=== PATIENT | female | born 1980 | race Asian ===

== ENCOUNTER → 2017-03-07 | Outpatient (CLI) | payer BC, OTHER ==
[~2017-03-07] MED LIST: None at this Time
== END ==
LOC: STAR 08:29
PROVIDERS: ATTEND Surgery
DX: Z02.9 Encounter for administrative examinations, unspecified (principal)

== ENCOUNTER 2017-03-16 11:00 | Day surgery (SDC) | payer BC ==
[~2017-03-16] VITALS: Ht 160 cm; Wt 84.8 kg
[2017-03-16] MEDS ORDERED: LACTATED RINGERS 1,000 ML IV SCH (11:22)
[2017-03-16 11:32] LABS: HCG UR LOT HCG7030192
[2017-03-16 11:41] LABS: HCG UR OBC PASS
[2017-03-16 11:47] VITALS: BP 149/102
[2017-03-16] MEDS ORDERED: BUPIVACAINE/PF 0.5% ONE (12:00)
[2017-03-16] MEDS ORDERED: EPINEPHRINE 1 MG/ML, 1ML ONE (12:00)
[2017-03-16] MEDS ORDERED: LIDOCAINE/PF 1%, 30ML ONE (12:09)
[2017-03-16] MEDS ORDERED: MIDAZOLAM 1 MG/ML, 2ML ONE (12:47)
[2017-03-16] MEDS ORDERED: FENTANYL PF 100 MCG/2ML ONE ×2 (12:47→14:50)
[2017-03-16] MEDS ORDERED: PROPOFOL 10 MG/ML, 20ML ONE (12:47)
[2017-03-16] MEDS ORDERED: KETAMINE 10 MG/ML, 20ML ONE (12:48)
[2017-03-16] MEDS ORDERED: OXYcodone 5 MG/5 ML ORAL.SOL UDC PO PRN (13:00)
[2017-03-16] MEDS ORDERED: MIDAZOLAM 1 MG/ML, 2ML IV PRN (13:00)
[2017-03-16] MEDS ORDERED: ONDANSETRON 2MG/ML, 2ML IVPush PRN (13:00)
[2017-03-16] MEDS ORDERED: MEPERIDINE/PF 25MG/0.5ML IVPush PRN (13:00)
[2017-03-16] MEDS ORDERED: hydrALAzine 20 MG/ML, 1ML IV PRN (13:00)
[2017-03-16] MEDS ORDERED: ALBUTEROL SULFATE 2.5 MG/3 ML NPPB PRN (13:00)
[2017-03-16] MEDS ORDERED: HYDROmorphone 1 MG/ML, 1ML IV PRN (13:00)
[2017-03-16] MEDS ORDERED: LABETALOL 5MG/ML, 20ML IV PRN (13:00)
[2017-03-16] MEDS ORDERED: ACETAMINOPHEN 325 MG TABLET PO PRN (13:00)
[2017-03-16] MEDS ORDERED: PROMETHAZINE 25 MG/ML, 1ML IV PRN (13:00)
[2017-03-16] MEDS ORDERED: ONDANSETRON 2MG/ML, 2ML ONE ×2 (13:29)
[2017-03-16] MEDS ORDERED: DEXAMETHASONE 4 MG/ML, 1ML ONE ×2 (13:29)
[2017-03-16] MEDS ORDERED: CEFAZOLIN 1,000 MG ONE ×2 (13:29)
[2017-03-16] MEDS ORDERED: LIDOCAINE GEL 2%, 5ML ONE (14:11)
[2017-03-16] MEDS ORDERED: PROMETHAZINE 25 MG/ML, 1ML ONE (14:50)
[2017-03-16] MEDS: FENTANYL PF 100 MCG/2ML IV PRN ×2 (14:58→15:10)
[2017-03-16] MEDS ORDERED: OXYcodone/APAP 5/325MG TABLET PO PRN (16:00)
[2017-03-16] MEDS ORDERED: OXYcodone/APAP 5/325MG TABLET ONE (16:03)
== END 2017-03-16 16:45 ==
LOC: OUT 11:00
PROVIDERS: ATTEND Surgery
DX: N63.12 Unspecified lump in the right breast, upper inner quadrant (principal)
CPT/HCPCS: 19120; 81025; 88307; J0171; J0690; J1100; J2250; J2405; J2550; J2704; J3010; J3490; J7120

== ENCOUNTER 2019-09-25 11:48 | Outpatient (CLI) | payer BC ==
[~2019-09-25] VITALS: Ht 160 cm; Wt 94.0 kg
[2019-09-25 11:53] VITALS: BP 124/79
[2019-09-25 12:16] LABS: BASOPHILS # (AUTO) 0.04 x10^3/uL (0-0.1); BASOPHILS % (AUTO) 0 % (0-1); EOSINOPHILS # (AUTO) 0.23 x10^3/uL (0-0.4); EOSINOPHILS % (AUTO) 2 % (1-7); LYMPHOCYTES # (AUTO) 1.83 x10^3/uL (1-3.4); LYMPHOCYTES % (AUTO) 14 % (22-44); MD NO; MEAN CORPUSCULAR HEMOGLOBIN 28.7 pg (27.0-34.8); MEAN CORPUSCULAR HGB CONC 33.6 g/dL (32.4-35.8); MEAN CORPUSCULAR VOLUME 85.3 fL (80-100); MONOCYTES # (AUTO) 0.87 x10^3/uL (0.2-0.8); MONOCYTES % (AUTO) 7 % (2-9); NEUTROPHILS # (AUTO) 10.12 x10^3/uL (1.8-6.8); NEUTROPHILS % (AUTO) 77 % (42-75); PLATELET COUNT 455 x10^3/uL (130-400); RED BLOOD COUNT 4.46 x10^6/uL (3.82-5.3); RED CELL DISTRIBUTION WIDTH 13.9 % (9.6-15.2)
[2019-09-25 12:27] LABS: CHLORIDE 105 mmol/L (98-107)
[2019-09-25 12:34] LABS: ALANINE AMINOTRANSFERASE 16 U/L (12-78); ALBUMIN 2.8 g/dL (3.4-5.0); ALKALINE PHOSPHATASE 90 U/L (45-117); ANION GAP 7 mmol/L (5-15); BILIRUBIN,TOTAL 0.5 mg/dL (0.2-1.0); CALCIUM 8.8 mg/dL (8.5-10.1); CREATININE 0.68 mg/dL (0.55-1.02); TOTAL PROTEIN 7.5 g/dL (6.4-8.2)
[2019-09-25 12:41] LABS: BILIRUBIN, DIRECT < 0.1 mg/dL (0.1-0.2)
[2019-09-25 12:42] LABS: MICROSCOPIC INDICATED
[2019-09-25] MEDS ORDERED: BETAMETHASONE 6 MG/ML, 5ML IM ONE ×2 (13:14→13:30)
[2019-09-25] MEDS ORDERED: PREN1TAB10 PO (13:18)
[2019-09-25] MEDS ORDERED: ASPI-515 PO (13:18)
== END 2019-09-25 13:28 | disposition home or self-care (01) ==
LOC: LDOP 11:48
PROVIDERS: ATTEND Obstetrics & Gynecology
DX: O13.3 Gestational [pregnancy-induced] hypertension without significant proteinuria, third trimester (principal); Z3A.34 34 weeks gestation of pregnancy
CPT/HCPCS: 36415; 59025; 80053; 81001; 82248; 82570; 84156; 84550; 85025; 96372; 99201; J0702; G0463

== ENCOUNTER 2019-09-26 13:30 | Outpatient (CLI) | payer BC ==
[~2019-09-26] VITALS: Ht 160 cm; Wt 94.0 kg
[~2019-09-26 13:30] MED LIST changes: +ASPI-515 PO; +BETAMETHASONE 6 MG/ML, 5ML IM ONE; +PREN1TAB10 PO
[2019-09-26 13:57] VITALS: BP 126/77
[2019-09-26] MEDS ORDERED: PLEASE ENTER HEIGHT AND WEIGHT MC SCH (14:00)
== END 2019-09-26 14:45 | disposition home or self-care (01) ==
LOC: LDOP 13:30
PROVIDERS: ATTEND Obstetrics & Gynecology
DX: O13.3 Gestational [pregnancy-induced] hypertension without significant proteinuria, third trimester (principal); Z3A.34 34 weeks gestation of pregnancy
CPT/HCPCS: 59025; 96372; 99211; J0702; G0463

== ENCOUNTER 2019-10-02 13:06 | Outpatient (CLI) | payer BC ==
[~2019-10-02 13:06] MED LIST changes: -BETAMETHASONE 6 MG/ML, 5ML IM ONE
[2019-10-02 14:04] LABS: BASOPHILS # (AUTO) 0.05 x10^3/uL (0-0.1); BASOPHILS % (AUTO) 0 % (0-1); EOSINOPHILS # (AUTO) 0.22 x10^3/uL (0-0.4); EOSINOPHILS % (AUTO) 2 % (1-7); LYMPHOCYTES % (AUTO) 15 % (22-44); MD NO; MEAN CORPUSCULAR HEMOGLOBIN 28.8 pg (27.0-34.8); MEAN CORPUSCULAR HGB CONC 33.3 g/dL (32.4-35.8); MEAN CORPUSCULAR VOLUME 86.6 fL (80-100); MEAN PLATELET VOLUME 6.9 fL (7.4-10.4); MONOCYTES # (AUTO) 1.03 x10^3/uL (0.2-0.8); MONOCYTES % (AUTO) 7 % (2-9); NEUTROPHILS # (AUTO) 11.12 x10^3/uL (1.8-6.8); NEUTROPHILS % (AUTO) 77 % (42-75); PLATELET COUNT 426 x10^3/uL (130-400); RED CELL DISTRIBUTION WIDTH 14.3 % (9.6-15.2)
[2019-10-02 14:13] LABS: CHLORIDE 108 mmol/L (98-107)
[2019-10-02 14:18] LABS: ALANINE AMINOTRANSFERASE 17 U/L (12-78); ALBUMIN 2.6 g/dL (3.4-5.0); ALKALINE PHOSPHATASE 88 U/L (45-117); ANION GAP 8 mmol/L (5-15); BILIRUBIN,TOTAL 0.3 mg/dL (0.2-1.0); CALCIUM 8.6 mg/dL (8.5-10.1); CREATININE 0.63 mg/dL (0.55-1.02); TOTAL PROTEIN 7.4 g/dL (6.4-8.2)
[2019-10-02 14:20] LABS: BILIRUBIN, DIRECT < 0.1 mg/dL (0.1-0.2)
[2019-10-02 14:25] LABS: MICROSCOPIC INDICATED
== END 2019-10-02 15:00 | disposition home or self-care (01) ==
LOC: LDOP 13:06
PROVIDERS: ATTEND Obstetrics & Gynecology
DX: O13.3 Gestational [pregnancy-induced] hypertension without significant proteinuria, third trimester (principal); Z3A.35 35 weeks gestation of pregnancy
CPT/HCPCS: 36415; 59025; 80053; 81001; 82248; 82570; 84156; 84550; 85025; 87081; 87147; 99211; G0463

== ENCOUNTER 2019-10-05 12:05 | Outpatient (CLI) | payer BC ==
[~2019-10-05] VITALS: Ht 175.3 cm; Wt 94.5 kg
[2019-10-05 12:34] VITALS: BP 143/96
[2019-10-05 12:51] LABS: MICROSCOPIC INDICATED
[2019-10-05 12:56] LABS: BASOPHILS # (AUTO) 0.11 x10^3/uL (0-0.1); BASOPHILS % (AUTO) 1 % (0-1); EOSINOPHILS # (AUTO) 0.19 x10^3/uL (0-0.4); EOSINOPHILS % (AUTO) 2 % (1-7); LYMPHOCYTES # (AUTO) 1.66 x10^3/uL (1-3.4); LYMPHOCYTES % (AUTO) 17 % (22-44); MD NO; MEAN CORPUSCULAR HEMOGLOBIN 28.9 pg (27.0-34.8); MEAN CORPUSCULAR HGB CONC 33.8 g/dL (32.4-35.8); MEAN CORPUSCULAR VOLUME 85.4 fL (80-100); MONOCYTES # (AUTO) 0.89 x10^3/uL (0.2-0.8); MONOCYTES % (AUTO) 9 % (2-9); NEUTROPHILS # (AUTO) 6.95 x10^3/uL (1.8-6.8); NEUTROPHILS % (AUTO) 71 % (42-75); PLATELET COUNT 366 x10^3/uL (130-400); RED BLOOD COUNT 4.25 x10^6/uL (3.82-5.3); RED CELL DISTRIBUTION WIDTH 14.2 % (9.6-15.2)
[2019-10-05 12:57] LABS: ALANINE AMINOTRANSFERASE 18 U/L (12-78); ALBUMIN 2.6 g/dL (3.4-5.0); ANION GAP 11 mmol/L (5-15); CALCIUM 9.2 mg/dL (8.5-10.1); CHLORIDE 106 mmol/L (98-107); CREATININE 0.58 mg/dL (0.55-1.02)
[2019-10-05 12:59] LABS: ALKALINE PHOSPHATASE 90 U/L (45-117); BILIRUBIN,TOTAL 0.2 mg/dL (0.2-1.0); TOTAL PROTEIN 6.9 g/dL (6.4-8.2)
[2019-10-05 13:01] LABS: BILIRUBIN, DIRECT < 0.1 mg/dL (0.1-0.2)
== END 2019-10-05 13:33 | disposition home or self-care (01) ==
LOC: LDOP 12:05
PROVIDERS: ATTEND Obstetrics & Gynecology
DX: O46.93 Antepartum hemorrhage, unspecified, third trimester (principal); Z3A.40 40 weeks gestation of pregnancy
CPT/HCPCS: 36415; 59025; 80053; 81001; 82248; 82570; 84156; 84550; 85025; 99211; G0463

== ENCOUNTER 2019-10-22 10:17 | Outpatient (CLI) | payer BC ==
[~2019-10-22] VITALS: Ht 160 cm; Wt 96.8 kg
[2019-10-22 10:57] LABS: BASOPHILS # (AUTO) 0.03 x10^3/uL (0-0.1); BASOPHILS % (AUTO) 0 % (0-1); EOSINOPHILS # (AUTO) 0.17 x10^3/uL (0-0.4); EOSINOPHILS % (AUTO) 2 % (1-7); LYMPHOCYTES # (AUTO) 1.71 x10^3/uL (1-3.4); LYMPHOCYTES % (AUTO) 14 % (22-44); MD NO; MEAN CORPUSCULAR HEMOGLOBIN 28.5 pg (27.0-34.8); MEAN CORPUSCULAR HGB CONC 32.9 g/dL (32.4-35.8); MEAN CORPUSCULAR VOLUME 86.7 fL (80-100); MEAN PLATELET VOLUME 6.7 fL (7.4-10.4); MONOCYTES # (AUTO) 0.75 x10^3/uL (0.2-0.8); MONOCYTES % (AUTO) 6 % (2-9); NEUTROPHILS # (AUTO) 9.41 x10^3/uL (1.8-6.8); NEUTROPHILS % (AUTO) 78 % (42-75); PLATELET COUNT 394 x10^3/uL (130-400); RED BLOOD COUNT 4.43 x10^6/uL (3.82-5.3)
[2019-10-22 11:06] LABS: MICROSCOPIC INDICATED
[2019-10-22 11:10] LABS: ALANINE AMINOTRANSFERASE 17 U/L (12-78); ALBUMIN 2.7 g/dL (3.4-5.0); ANION GAP 8 mmol/L (5-15); CALCIUM 8.7 mg/dL (8.5-10.1); CHLORIDE 108 mmol/L (98-107); CREATININE 0.69 mg/dL (0.55-1.02)
[2019-10-22 11:12] LABS: ALKALINE PHOSPHATASE 99 U/L (45-117); BILIRUBIN,TOTAL 0.3 mg/dL (0.2-1.0)
[2019-10-22 12:00] LABS: CREATININE,URINE RANDOM 78.9 mg/dL
== END 2019-10-22 12:27 | disposition home or self-care (01) ==
LOC: LDOP 10:17
PROVIDERS: ATTEND Obstetrics & Gynecology
DX: O14.03 Mild to moderate pre-eclampsia, third trimester (principal); O99.820 Streptococcus B carrier state complicating pregnancy; Z11.59 Encounter for screening for other viral diseases; Z3A.38 38 weeks gestation of pregnancy
CPT/HCPCS: 36415; 59025; 80053; 81001; 82570; 84156; 84550; 85025; 87635

== ENCOUNTER 2019-10-24 05:26 | Inpatient (IN) | payer BC ==
[~2019-10-24] VITALS: Ht 160 cm; Wt 96.8 kg
[2019-10-24 05:45] VITALS: BP 141/81
[2019-10-24] MEDS ORDERED: LACTATED RINGERS 1,000 ML IVBOLUS ONE (06:00)
[2019-10-24] MEDS ORDERED: METOCLOPRAMIDE 5 MG/ML, 2ML IV ONE ×2 (06:00→14:30)
[2019-10-24] MEDS ORDERED: SODIUM CITRATE/CITRIC ACID 30 ML UDC PO ONE ×2 (06:00→14:30)
[2019-10-24] MEDS ORDERED: METOCLOPRAMIDE 5 MG/ML, 2ML ONE ×4 (06:04→14:25)
[2019-10-24] MEDS ORDERED: NEWBORN KIT ONE (06:04)
[2019-10-24] MEDS ORDERED: OXYTOCIN 30U/ 0.9% NaCL 500ML 500 ML ONE ×2 (06:04→12:50)
[2019-10-24] MEDS ORDERED: SODIUM CITRATE/CITRIC ACID 30 ML UDC ONE ×4 (06:05→14:26)
[2019-10-24 06:43] LABS: BASOPHILS # (AUTO) 0.05 x10^3/uL (0-0.1); BASOPHILS % (AUTO) 0 % (0-1); EOSINOPHILS # (AUTO) 0.31 x10^3/uL (0-0.4); EOSINOPHILS % (AUTO) 2 % (1-7); LYMPHOCYTES # (AUTO) 2.27 x10^3/uL (1-3.4); LYMPHOCYTES % (AUTO) 17 % (22-44); MD NO; MEAN CORPUSCULAR HEMOGLOBIN 28.7 pg (27.0-34.8); MEAN CORPUSCULAR VOLUME 86.8 fL (80-100); MEAN PLATELET VOLUME 7.2 fL (7.4-10.4); MONOCYTES # (AUTO) 1.01 x10^3/uL (0.2-0.8); MONOCYTES % (AUTO) 8 % (2-9); NEUTROPHILS # (AUTO) 9.57 x10^3/uL (1.8-6.8); NEUTROPHILS % (AUTO) 73 % (42-75); PLATELET COUNT 417 x10^3/uL (130-400); RED BLOOD COUNT 4.46 x10^6/uL (3.82-5.3); RED CELL DISTRIBUTION WIDTH 14.9 % (9.6-15.2)
[2019-10-24] MEDS ORDERED: ONDANSETRON 2MG/ML, 2ML ONE ×2 (07:19→14:41)
[2019-10-24] MEDS ORDERED: OXYTOCIN 10 UNITS/ML, 1ML ONE (07:19)
[2019-10-24] MEDS ORDERED: CEFAZOLIN 1,000 MG ONE ×2 (07:19→14:41)
[2019-10-24] MEDS ORDERED: FENTANYL PF 100 MCG/2ML ONE ×4 (07:20→17:29)
[2019-10-24] MEDS ORDERED: HYDROmorphone 2 MG/ML, 1ML ONE (07:20)
[2019-10-24] MEDS ORDERED: SODIUM CHLORIDE 0.9% PF 10ML ONE ×2 (07:21)
[2019-10-24] MEDS ORDERED: METHYLERGONOVINE 0.2 MG/ML IM ONE ×2 (08:00→13:30)
[2019-10-24] MEDS ORDERED: MISOPROSTOL 200 MCG TABLET ONE (08:00)
[2019-10-24] MEDS ORDERED: DEXAMETHASONE 4 MG/ML, 1ML ONE ×2 (08:39→14:41)
[2019-10-24] MEDS ORDERED: KETOROLAC 30 MG/1 ML ONE (08:39)
[2019-10-24] MEDS ORDERED: EPHEDRINE 50 MG/ML, 1ML ONE (08:40)
[2019-10-24] MEDS ORDERED: METHYLENE BLUE 10 MG/ML 10ML ONE (08:57)
[2019-10-24] MEDS ORDERED: TRANEXAMIC ACID 100 MG/ML, 10ML ONE ×2 (09:11→12:28)
[2019-10-24] MEDS ORDERED: CARBOPROST TROMETHAMINE 250 MCG/ML, 1ML IM ONE ×2 (12:38→13:52)
[2019-10-24] MEDS ORDERED: CEFAZOLIN 1,000 MG IVPB ONE (13:00)
[2019-10-24] MEDS ORDERED: CEFAZOLIN PMX 2GM/50ML 50 ML IVPB ONE (13:00)
[2019-10-24] MEDS ORDERED: OXYcodone 5 MG/5 ML ORAL.SOL UDC ONE (13:21)
[2019-10-24 13:24] LABS: MEAN CORPUSCULAR HEMOGLOBIN 28.5 pg (27.0-34.8); MEAN CORPUSCULAR HGB CONC 32.7 g/dL (32.4-35.8); MEAN CORPUSCULAR VOLUME 87.1 fL (80-100); MEAN PLATELET VOLUME 7.1 fL (7.4-10.4); PLATELET COUNT 349 x10^3/uL (130-400); RED BLOOD COUNT 3.27 x10^6/uL (3.82-5.3); RED CELL DISTRIBUTION WIDTH 14.7 % (9.6-15.2)
[2019-10-24 13:28] LABS: INTERNATIONAL NORMALIZED RATIO 0.94 (0.93-1.1)
[2019-10-24 13:29] LABS: ALANINE AMINOTRANSFERASE 12 U/L (12-78); ALBUMIN 1.9 g/dL (3.4-5.0); ANION GAP 7 mmol/L (5-15); CALCIUM 8.4 mg/dL (8.5-10.1); CHLORIDE 111 mmol/L (98-107)
[2019-10-24] MEDS ORDERED: OXYcodone 5 MG/5 ML ORAL.SOL UDC PO PRN ×2 (13:30→15:00)
[2019-10-24] MEDS ORDERED: TRANEXAMIC ACID 100 MG/ML, 10ML IVPush ONE (13:30)
[2019-10-24 13:31] LABS: ALKALINE PHOSPHATASE 68 U/L (45-117); BILIRUBIN,TOTAL 0.2 mg/dL (0.2-1.0); CREATININE 0.56 mg/dL (0.55-1.02); TOTAL PROTEIN 4.8 g/dL (6.4-8.2)
[2019-10-24 13:44] LABS: BASOPHILS # (AUTO) 0.01 x10^3/uL (0-0.1); BASOPHILS % (AUTO) 0 % (0-1); EOSINOPHILS # (AUTO) 0.01 x10^3/uL (0-0.4); EOSINOPHILS % (AUTO) 0 % (1-7); LYMPHOCYTES # (AUTO) 0.88 x10^3/uL (1-3.4); LYMPHOCYTES % (AUTO) 4 % (22-44); MD SCAN; MONOCYTES # (AUTO) 0.73 x10^3/uL (0.2-0.8); MONOCYTES % (AUTO) 4 % (2-9); NEUTROPHILS # (AUTO) 19.47 x10^3/uL (1.8-6.8); NEUTROPHILS % (AUTO) 92 % (42-75)
[2019-10-24] MEDS ORDERED: MIDAZOLAM 1 MG/ML, 2ML ONE (14:29)
[2019-10-24] MEDS ORDERED: LIDOCAINE-MPF 2% ,5ML ONE (14:29)
[2019-10-24] MEDS ORDERED: FENTANYL PF 250 MCG/5ML ONE (14:29)
[2019-10-24] MEDS ORDERED: SUCCINYLCHOLINE 20 MG/ML, 10ML ONE (14:41)
[2019-10-24] MEDS ORDERED: PROPOFOL 10 MG/ML, 20ML ONE (14:41)
[2019-10-24] MEDS ORDERED: ROCURONIUM 10MG/ML,5ML ONE ×2 (14:41→15:46)
[2019-10-24] MEDS ORDERED: LABETALOL 5MG/ML, 20ML IV PRN (15:00)
[2019-10-24] MEDS ORDERED: EPHEDRINE 50 MG/ML, 1ML IVPush PRN (15:00)
[2019-10-24] MEDS ORDERED: PROMETHAZINE 25 MG/ML, 1ML IVPush PRN (15:00)
[2019-10-24] MEDS ORDERED: hydrALAzine 20 MG/ML, 1ML IV PRN (15:00)
[2019-10-24] MEDS ORDERED: MEPERIDINE/PF 25MG/0.5ML IVPush PRN (15:00)
[2019-10-24] MEDS ORDERED: ACETAMINOPHEN 325 MG TABLET PO PRN (15:00)
[2019-10-24] MEDS ORDERED: ONDANSETRON 2MG/ML, 2ML IVPush PRN (15:00)
[2019-10-24] MEDS ORDERED: OXYTOCIN 30U/ 0.9% NaCL 500ML 500 ML IV SCH (15:10)
[2019-10-24] MEDS ORDERED: CARBOPROST TROMETHAMINE 250 MCG/ML, 1ML IM PRN (15:30)
[2019-10-24] MEDS ORDERED: MISOPROSTOL 200 MCG TABLET PR PRN (15:30)
[2019-10-24] MEDS ORDERED: SODIUM BICARBONATE 1 MEQ/ML, 50ML VIAL ONE (16:13)
[2019-10-24] MEDS ORDERED: SUGAMMADEX 200 MG/2 ML IVPush ONE (16:18)
[2019-10-24] MEDS ORDERED: FLUORESCEIN SODIUM 500 MG/5 ML ONE (16:37)
[2019-10-24 16:39] LABS: MEAN CORPUSCULAR HEMOGLOBIN 28.8 pg (27.0-34.8); MEAN CORPUSCULAR HGB CONC 32.3 g/dL (32.4-35.8); MEAN CORPUSCULAR VOLUME 89.4 fL (80-100); PLATELET COUNT 272 x10^3/uL (130-400); RED BLOOD COUNT 4.22 x10^6/uL (3.82-5.3); RED CELL DISTRIBUTION WIDTH 14.2 % (9.6-15.2)
[2019-10-24 16:40] LABS: BASOPHILS # (AUTO) 0.05 x10^3/uL (0-0.1); BASOPHILS % (AUTO) 0 % (0-1); EOSINOPHILS # (AUTO) 0.01 x10^3/uL (0-0.4); EOSINOPHILS % (AUTO) 0 % (1-7); LYMPHOCYTES # (AUTO) 1.28 x10^3/uL (1-3.4); LYMPHOCYTES % (AUTO) 5 % (22-44); MD SCAN; MONOCYTES # (AUTO) 1.23 x10^3/uL (0.2-0.8); MONOCYTES % (AUTO) 5 % (2-9); NEUTROPHILS # (AUTO) 21.03 x10^3/uL (1.8-6.8); NEUTROPHILS % (AUTO) 89 % (42-75)
[2019-10-24] MEDS: HYDROmorphone 1 MG/ML, 1ML INJ IVPush PRN ×4 (17:14→17:46)
[2019-10-24] MEDS: FENTANYL PF 100 MCG/2ML IV PRN ×2 (17:16→17:28)
[2019-10-24] MEDS ORDERED: HYDROmorphone 1 MG/ML, 1ML INJ ONE (17:29)
[2019-10-24 17:37] LABS: INTERNATIONAL NORMALIZED RATIO 0.96 (0.93-1.1); PROTHROMBIN TIME 10.2 Seconds (9.6-11.5)
[2019-10-24 18:10] VITALS: BP 165/110
[2019-10-24 18:20] VITALS: BP 140/74
[2019-10-24] MEDS: LACTATED RINGERS 1,000 ML IV SCH ×2 (18:28)
[2019-10-24] MEDS ORDERED: HYDROmorphone 2 MG/ML, 1ML IVPush PRN (18:30)
[2019-10-24] MEDS ORDERED: PROMETHAZINE 25 MG SUPP PR PRN (18:30)
[2019-10-24] MEDS ORDERED: SIMETHICONE 80 MG CHEW TAB PO PRN (18:30)
[2019-10-24] MEDS ORDERED: OXYcodone/APAP 5/325MG TABLET ONE (18:39)
[2019-10-24] MEDS: OXYcodone/APAP 5/325MG TABLET PO PRN (19:06)
[2019-10-24 19:20] VITALS: BP 153/82
[2019-10-24 19:45] VITALS: BP 111/85
[2019-10-24] MEDS: DOCUSATE 100 MG CAPSULE PO PRN (21:22)
[2019-10-24] MEDS: IBUPROFEN 600 MG TABLET PO PRN (21:22)
[2019-10-24 22:23] LABS: MEAN CORPUSCULAR HEMOGLOBIN 29.4 pg (27.0-34.8); MEAN CORPUSCULAR HGB CONC 33.2 g/dL (32.4-35.8); MEAN CORPUSCULAR VOLUME 88.7 fL (80-100); MEAN PLATELET VOLUME 6.9 fL (7.4-10.4); PLATELET COUNT 248 x10^3/uL (130-400); RED CELL DISTRIBUTION WIDTH 14.1 % (9.6-15.2)
[2019-10-24 22:27] LABS: ALBUMIN 1.9 g/dL (3.4-5.0); ANION GAP 9 mmol/L (5-15); CHLORIDE 106 mmol/L (98-107)
[2019-10-24 22:30] VITALS: BP 128/79
[2019-10-24 22:30] LABS: ALANINE AMINOTRANSFERASE 16 U/L (12-78); ALKALINE PHOSPHATASE 63 U/L (45-117); BILIRUBIN,TOTAL 0.7 mg/dL (0.2-1.0)
[2019-10-24 22:34] LABS: BASOPHILS # (AUTO) 0.02 x10^3/uL (0-0.1); BASOPHILS % (AUTO) 0 % (0-1); EOSINOPHILS # (AUTO) 0.01 x10^3/uL (0-0.4); EOSINOPHILS % (AUTO) 0 % (1-7); LYMPHOCYTES # (AUTO) 1.29 x10^3/uL (1-3.4); LYMPHOCYTES % (AUTO) 7 % (22-44); MD SCAN; MONOCYTES # (AUTO) 0.69 x10^3/uL (0.2-0.8); MONOCYTES % (AUTO) 4 % (2-9); NEUTROPHILS # (AUTO) 16.76 x10^3/uL (1.8-6.8); NEUTROPHILS % (AUTO) 89 % (42-75)
[2019-10-24 22:51] LABS: INTERNATIONAL NORMALIZED RATIO 0.93 (0.93-1.1); PROTHROMBIN TIME 9.9 Seconds (9.6-11.5)
[2019-10-25] MEDS: LACTATED RINGERS 1,000 ML IV SCH ×5 (02:00→18:28)
[2019-10-25] MEDS: IBUPROFEN 600 MG TABLET PO PRN ×3 (03:02→19:58)
[2019-10-25] MEDS: OXYcodone/APAP 5/325MG TABLET PO PRN ×3 (03:02→13:19)
[2019-10-25 03:06] VITALS: BP 132/79
[2019-10-25 06:10] LABS: BASOPHILS # (AUTO) 0.02 x10^3/uL (0-0.1); BASOPHILS % (AUTO) 0 % (0-1); EOSINOPHILS # (AUTO) 0.01 x10^3/uL (0-0.4); EOSINOPHILS % (AUTO) 0 % (1-7); LYMPHOCYTES % (AUTO) 14 % (22-44); MD NO; MEAN CORPUSCULAR HEMOGLOBIN 30.4 pg (27.0-34.8); MEAN CORPUSCULAR HGB CONC 34.2 g/dL (32.4-35.8); MEAN CORPUSCULAR VOLUME 88.7 fL (80-100); MEAN PLATELET VOLUME 7.5 fL (7.4-10.4); MONOCYTES # (AUTO) 1.48 x10^3/uL (0.2-0.8); MONOCYTES % (AUTO) 10 % (2-9); NEUTROPHILS # (AUTO) 11.78 x10^3/uL (1.8-6.8); NEUTROPHILS % (AUTO) 77 % (42-75); PLATELET COUNT 235 x10^3/uL (130-400); RED BLOOD COUNT 3.09 x10^6/uL (3.82-5.3); RED CELL DISTRIBUTION WIDTH 14.4 % (9.6-15.2)
[2019-10-25 07:00] VITALS: BP 122/75
[2019-10-25] MEDS: PRENATAL VIT/IRON/FA 1 EACH TABLET PO SCH (08:05)
[2019-10-25] MEDS: DOCUSATE 100 MG CAPSULE PO PRN ×2 (08:05→19:57)
[2019-10-25 12:47] LABS: BASOPHILS # (AUTO) 0.04 x10^3/uL (0-0.1); BASOPHILS % (AUTO) 0 % (0-1); EOSINOPHILS # (AUTO) 0.17 x10^3/uL (0-0.4); EOSINOPHILS % (AUTO) 1 % (1-7); LYMPHOCYTES # (AUTO) 2.63 x10^3/uL (1-3.4); LYMPHOCYTES % (AUTO) 21 % (22-44); MD NO; MEAN CORPUSCULAR HEMOGLOBIN 30.3 pg (27.0-34.8); MEAN CORPUSCULAR HGB CONC 34.6 g/dL (32.4-35.8); MEAN CORPUSCULAR VOLUME 87.5 fL (80-100); MEAN PLATELET VOLUME 6.8 fL (7.4-10.4); MONOCYTES # (AUTO) 1.15 x10^3/uL (0.2-0.8); MONOCYTES % (AUTO) 9 % (2-9); NEUTROPHILS # (AUTO) 8.48 x10^3/uL (1.8-6.8); NEUTROPHILS % (AUTO) 68 % (42-75); PLATELET COUNT 226 x10^3/uL (130-400); RED BLOOD COUNT 2.89 x10^6/uL (3.82-5.3); RED CELL DISTRIBUTION WIDTH 14.6 % (9.6-15.2)
[2019-10-25 13:19] VITALS: BP 129/79
[2019-10-25 17:15] VITALS: BP 118/62
[2019-10-25] MEDS: FERROUS SULFATE 325 MG TABLET PO SCH (19:58)
[2019-10-25 20:00] VITALS: BP 125/78
[2019-10-26] MEDS: LACTATED RINGERS 1,000 ML IV SCH ×4 (00:28→10:28)
[2019-10-26] MEDS: IBUPROFEN 600 MG TABLET PO PRN ×2 (02:30→08:10)
[2019-10-26] MEDS: OXYcodone/APAP 5/325MG TABLET PO PRN ×3 (02:30→11:31)
[2019-10-26 07:25] VITALS: BP 126/87
[2019-10-26] MEDS ORDERED: DOCU-131 PO (07:34)
[2019-10-26] MEDS ORDERED: IBUP-1222 PO (07:36)
[2019-10-26] MEDS ORDERED: OXYC-302 PO (07:38)
[2019-10-26] MEDS ORDERED: FERR324T5 PO (07:40)
[2019-10-26] MEDS: FERROUS SULFATE 325 MG TABLET PO SCH (08:10)
[2019-10-26] MEDS: DOCUSATE 100 MG CAPSULE PO PRN (08:10)
[2019-10-26] MEDS: PRENATAL VIT/IRON/FA 1 EACH TABLET PO SCH (08:10)
== END 2019-10-26 11:40 | disposition home or self-care (01) | DRG 785 ==
LOC: LDIP 05:26 → 2NW 18:11
PROVIDERS: ADMIT Obstetrics & Gynecology; ATTEND Obstetrics & Gynecology
PROC: 0UB70ZZ Excision of Bilateral Fallopian Tubes, Open Approach (ICD-10-PCS; principal; 2019-10-25)
PROC: 10D00Z1 Extraction of Products of Conception, Low, Open Approach (ICD-10-PCS; 2019-10-25)
PROC: 30233K1 Transfusion of Nonautologous Frozen Plasma into Peripheral Vein, Percutaneous Approach (ICD-10-PCS; 2019-10-25)
PROC: 30233N1 Transfusion of Nonautologous Red Blood Cells into Peripheral Vein, Percutaneous Approach (ICD-10-PCS; 2019-10-25)
DX: O34.211 Maternal care for low transverse scar from previous cesarean delivery (principal); O14.94 Unspecified pre-eclampsia, complicating childbirth; N32.89 Other specified disorders of bladder; Z30.2 Encounter for sterilization; Z37.0 Single live birth; Z3A.38 38 weeks gestation of pregnancy; Z20.828 Contact with and (suspected) exposure to other viral communicable diseases
CPT/HCPCS: 36415; J3490; 80053; 82330; 82803; 82947; 84132; 84295; 85014; 85025; 85384; 85610; 85730; 86592; 86850; 86900; 86923; 87635; 88302; 88307; G0378; J0690; J1100; J1170; J1885; J2250; J2405; J2704; J3010; J0330; J2210; J2590; J2765; J7120; P9016; P9017; Q9968

== ENCOUNTER 2020-01-07 08:53 | Inpatient (IN) | payer BC ==
[~2020-01-07] VITALS: Ht 160 cm; Wt 86.3 kg
[~2020-01-07 08:53] MED LIST changes: +DOCU-131 PO; +FERR324T5 PO; +IBUP-1222 PO; +OXYC-302 PO
[2020-01-07] MEDS ORDERED: NITROGLYCERIN SINGLE TAB 0.4 MG SL ONE (09:17)
[2020-01-07] MEDS ORDERED: NITROGLYCERIN SINGLE TAB 0.4 MG SL PRN (09:30)
--- NOTE | 2020-01-07 09:33 | NUR ---
PT STATES SHE HAD MINIMAL RELIEF WITH NTG DOSE. PT STATES SHE STILL HAS CHEST PRESSURE "RIGHT UNDER THE STERNUM" AND PT STATES SHE ALSO HAS A DAN. PT REFUSED 2ND DOSE OF NTG. CALL LIGHT WITHIN REACH, NO ADDITIONAL NEEDS AT THIS TIME.
[2020-01-07 09:51] LABS: ALANINE AMINOTRANSFERASE 75 U/L (12-78); ALBUMIN 3.5 g/dL (3.4-5.0); ANION GAP 6 mmol/L (5-15); CALCIUM 8.9 mg/dL (8.5-10.1); CHLORIDE 108 mmol/L (98-107); CREATININE 0.76 mg/dL (0.55-1.02)
[2020-01-07 09:52] LABS: BASOPHILS # (AUTO) 0.07 x10^3/uL (0-0.1); BASOPHILS % (AUTO) 1 % (0-1); EOSINOPHILS # (AUTO) 0.27 x10^3/uL (0-0.4); EOSINOPHILS % (AUTO) 3 % (1-7); LYMPHOCYTES % (AUTO) 16 % (22-44); MD NO; MEAN CORPUSCULAR HEMOGLOBIN 27.8 pg (27.0-34.8); MEAN CORPUSCULAR HGB CONC 32.7 g/dL (32.4-35.8); MEAN PLATELET VOLUME 7.6 fL (7.4-10.4); MONOCYTES % (AUTO) 8 % (2-9); NEUTROPHILS # (AUTO) 7.78 x10^3/uL (1.8-6.8); NEUTROPHILS % (AUTO) 73 % (42-75); PLATELET COUNT 360 x10^3/uL (130-400); RED CELL DISTRIBUTION WIDTH 12.9 % (9.6-15.2)
[2020-01-07 09:56] LABS: ALKALINE PHOSPHATASE 97 U/L (45-117); BILIRUBIN,TOTAL 0.2 mg/dL (0.2-1.0); TOTAL PROTEIN 7.9 g/dL (6.4-8.2); TROPONIN I < 0.015 ng/mL (0.000-0.045)
--- NOTE | 2020-01-07 10:02 | NUR ---
PT SITTING ON g2One ON CELL PHONE. NAD, VSS. PT STATES SHE HAS INCREASED SOB NOTIFIED. CALL LIGHT WITHIN REACH. NO ADDITIONAL NEEDS AT THIS TIME.
[2020-01-07] MEDS ORDERED: ACETAMINOPHEN 325 MG TABLET ONE (10:17)
[2020-01-07] MEDS ORDERED: LORazepam 2 MG/ML, 1ML ONE (10:18)
--- NOTE | 2020-01-07 10:23 | NUR ---
PT TO CT
[2020-01-07] MEDS ORDERED: ACETAMINOPHEN 325 MG TABLET PO ONE (10:30)
[2020-01-07] MEDS ORDERED: LORazepam 2 MG/ML, 1ML IVPush ONE (10:30)
--- NOTE | 2020-01-07 10:33 | NUR ---
PT RETURNED FROM CT
--- NOTE | 2020-01-07 10:36 | NUR ---
PT STATES SHE HAS A DECREASE IN CP AND SOB FOLLOWING MEDICATIONS. PT SITTING CALMLY ON BED ON CELL PHONE. PT DENIES ANY ADDITIONAL NEEDS AT THIS TIME. CALL LIGHT WITHIN REACH.
[2020-01-07] MEDS ORDERED: OMNIPAQUE 350 MG/ML, 75ML BOTTLE ONE (10:40)
--- NOTE | 2020-01-07 11:04 | NUR ---
PT SITTING UPRIGHT ON GURNEY WHILE ON CELL PHONE. NAD, VSS. PT STATES PAIN REMAINS "ABOUT THE SAME BUT SOB HAS GOTTEN BETTER". NO ADDITIONAL NEEDS AT THIS TIME. CALL LIGHT WITHIN REACH, FALL PRECAUTIONS IN PLACE.
--- NOTE | 2020-01-07 11:59 | NUR ---
PT COMFORTABLY SITTING ON GURNEY AND ON PERSONAL CELL PHONE. NAD, VSS. PT DECLINES ANY PAIN MEDICATION AT THIS TIME. NO ADDITIONAL NEEDS AT THIS TIME, CALL LIGHT WITHIN REACH. WILL CONTINUE TO MONITOR.
[2020-01-07] MEDS ORDERED: MORPHINE SULFATE 4 MG/ML, 1ML IVPush PRN (12:00)
[2020-01-07] MEDS ORDERED: LABE100T6 PO (12:07)
[2020-01-07] MEDS ORDERED: FUROSEMIDE 20 MG/2 ML ONE (12:09)
[2020-01-07] MEDS ORDERED: FUROSEMIDE 20 MG/2 ML IV ONE (12:30)
[2020-01-07] MEDS ORDERED: ONDANSETRON ODT 4 MG PO PRN (13:00)
[2020-01-07] MEDS ORDERED: ONDANSETRON 2MG/ML, 2ML IVPush PRN (13:00)
[2020-01-07] MEDS ORDERED: ACETAMINOPHEN 325 MG TABLET PO PRN (13:00)
[2020-01-07] MEDS ORDERED: DEXAMETHASONE 4 MG/ML, 1ML IVPush SCH (13:00)
[2020-01-07] MEDS ORDERED: POLYETHYLENE GLYCOL 17 GM PACKET PO PRN (13:00)
[2020-01-07] MEDS ORDERED: ASCORBIC ACID 250 MG TAB PO SCH (13:00)
--- NOTE | 2020-01-07 13:07 | NUR ---
CALL PLACED TO HOSPITALIST DR. BRUCE REGARDING CLARIFICATION ON COVID AND MEDICATION ORDERS HOSPITALIST HAS NOT SEEN PT YET. HOSPITALIST STATES SHE WILL SEE PT WHEN SHE GETS TRANSFERED TO THE FLOOR AND TO CONTINUE WITH SAID ORDERS. 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
[2020-01-07] MEDS ORDERED: DEXAMETHASONE 4 MG/ML, 1ML ONE (13:29)
--- NOTE | 2020-01-07 13:33 | NUR ---
break rn- meal provided, medications requested. pt resting in bed
[2020-01-07] MEDS ORDERED: LABETALOL 100 MG TABLET PO SCH (14:00)
--- NOTE | 2020-01-07 14:04 | NUR ---
PT UPRIGHT ON GURNEY AND EATING MEAL TRAY. PT IN NAD, VSS. PT STATES SHE "FEELS A LOT BETTER AFTER THE STEROIDS" AND HAS DECREASED PAIN. NO ADDITONAL NEEDS AT THIS TIME, CALL LIGHT WITHIN REACH, COMFORT MEASURES PROVIDED.
[2020-01-07] MEDS ORDERED: ENOXAPARIN 80 MG/0.8 ML ONE (14:45)
[2020-01-07] MEDS: CHOLECALCIFEROL 5,000u TAB PO SCH (14:53)
[2020-01-07] MEDS: ENOXAPARIN 80 MG/0.8 ML SQ SCH (14:53)
[2020-01-07] MEDS: ASCORBIC ACID 500 MG TABLET PO SCH ×3 (14:53→21:12)
[2020-01-07] MEDS: ZINC SULFATE 220 MG CAPSULE PO SCH (14:53)
--- NOTE | 2020-01-07 15:02 | NUR ---
PT SITTING ON BED, FINISHED MEAL TRAY. PT UP TO BATHROOM. COMFORT MEASURES PROVIDED. PT DENIES ANY ADDITIONAL NEEDS AT THIS TIME. CALL LIGHT WITHIN REACH, NO ADDITIONAL NEEDS AT THIS TIME. WILL CONTINUE TO MONITOR.
--- NOTE | 2020-01-07 16:05 | NUR ---
PT UPRIGHT ON GURNEY, ON CELLPHONE WHILE TV ON, RESPONDS APPROP TO STAFF, NAD, COMFORT MEASURES PROVIDED, CALL LIGHT WITHIN REACH.
--- NOTE | 2020-01-07 17:17 | NUR ---
REPORT TO BARRY KELLER
[2020-01-07 17:51] VITALS: BP 175/88
[2020-01-07] MEDS: FUROSEMIDE 20 MG/2 ML IV SCH (18:17)
[2020-01-07 20:20] VITALS: BP 144/85
[2020-01-07] MEDS: MELATONIN 5 MG TABLET PO SCH (21:12)
[2020-01-07] MEDS: LABETALOL 100 MG TABLET PO SCH (21:12)
[2020-01-07] MEDS: DEXAMETHASONE 4 MG/ML, 1ML IVPush SCH (21:13)
[2020-01-07 22:34] VITALS: BP 144/85
[2020-01-08 00:47] VITALS: BP 112/61
[2020-01-08] MEDS: DEXAMETHASONE 4 MG/ML, 1ML IVPush SCH ×4 (02:56→20:45)
[2020-01-08] MEDS: ENOXAPARIN 80 MG/0.8 ML SQ SCH ×2 (02:56→15:53)
[2020-01-08 05:09] LABS: MEAN CORPUSCULAR HEMOGLOBIN 27.8 pg (27.0-34.8); MEAN CORPUSCULAR HGB CONC 32.5 g/dL (32.4-35.8); MEAN PLATELET VOLUME 7.8 fL (7.4-10.4); PLATELET COUNT 394 x10^3/uL (130-400); RED BLOOD COUNT 5.03 x10^6/uL (3.82-5.3); RED CELL DISTRIBUTION WIDTH 12.7 % (9.6-15.2)
[2020-01-08 05:10] LABS: ANION GAP 7 mmol/L (5-15); CALCIUM 9.2 mg/dL (8.5-10.1); CHLORIDE 106 mmol/L (98-107); CREATININE 0.75 mg/dL (0.55-1.02)
[2020-01-08] MEDS: LABETALOL 100 MG TABLET PO SCH ×3 (05:13→20:46)
[2020-01-08 05:21] LABS: TROPONIN I < 0.015 ng/mL (0.000-0.045)
[2020-01-08 05:51] LABS: MD YES
[2020-01-08 05:54] LABS: <PLATELET ESTIMATE> ADEQUATE; <RBC MORPHOLOGY> NORMAL; BAND#(MANUAL) 0.67 x10^3/uL; BANDS%(MANUAL) 4 % (0-7); LYMPH#(MANUAL) 0.84 x10^3/uL (1-3.4); LYMPHS% (MANUAL) 5 % (22-44); MONOS#(MANUAL) 0.33 x10^3/uL (0.3-2.7); MONOS% (MANUAL) 2 % (2-9); SEG#(MANUAL) 14.86 x10^3/uL (1.8-6.8); SEGS% (MANUAL) 89 % (42-75)
[2020-01-08 05:55] LABS: <PLT MORPHOLOGY> NORMAL PLT MORPH
[2020-01-08 07:17] VITALS: BP 113/75
[2020-01-08] MEDS: FUROSEMIDE 20 MG/2 ML IV SCH ×2 (08:03→15:55)
[2020-01-08] MEDS: ASCORBIC ACID 500 MG TABLET PO SCH ×3 (08:05→20:46)
[2020-01-08] MEDS: ZINC SULFATE 220 MG CAPSULE PO SCH (08:05)
[2020-01-08] MEDS: SENNA/DOCUSATE TABLET PO SCH (08:05)
[2020-01-08] MEDS: CHOLECALCIFEROL 5,000u TAB PO SCH (08:05)
[2020-01-08 12:26] VITALS: BP 134/80
[2020-01-08 19:27] VITALS: BP 147/80
[2020-01-08] MEDS: MELATONIN 5 MG TABLET PO SCH (20:46)
[2020-01-09 01:16] VITALS: BP 126/76
[2020-01-09] MEDS: ENOXAPARIN 80 MG/0.8 ML SQ SCH ×2 (02:15→14:55)
[2020-01-09] MEDS: DEXAMETHASONE 4 MG/ML, 1ML IVPush SCH ×3 (02:16→14:55)
[2020-01-09] MEDS: LABETALOL 100 MG TABLET PO SCH ×2 (05:17→14:54)
[2020-01-09 06:02] LABS: ANION GAP 10 mmol/L (5-15); CALCIUM 9.1 mg/dL (8.5-10.1); CHLORIDE 107 mmol/L (98-107)
[2020-01-09 06:05] LABS: CREATININE 0.78 mg/dL (0.55-1.02)
[2020-01-09 07:44] VITALS: BP 141/78
[2020-01-09] MEDS: ASCORBIC ACID 500 MG TABLET PO SCH ×2 (08:36→16:22)
[2020-01-09] MEDS: FUROSEMIDE 20 MG/2 ML IV SCH ×2 (08:36→16:22)
[2020-01-09] MEDS: CHOLECALCIFEROL 5,000u TAB PO SCH (08:37)
[2020-01-09] MEDS: SENNA/DOCUSATE TABLET PO SCH (08:37)
[2020-01-09] MEDS: ZINC SULFATE 220 MG CAPSULE PO SCH (08:37)
[2020-01-09] MEDS ORDERED: LISINOPRIL 10 MG TABLET PO SCH (11:30)
[2020-01-09 12:57] VITALS: BP 155/87
[2020-01-09] MEDS ORDERED: LISI-167 PO (15:46)
[2020-01-09] MEDS ORDERED: CARV3.1212 PO (15:46)
[2020-01-09] MEDS ORDERED: CARVEDILOL 3.125 MG TABLET PO SCH (18:00)
== END 2020-01-09 17:27 | disposition home or self-care (01) | DRG 189 ==
LOC: ED 10:03 → SUATTDRO 12:38 → EDIP 12:50 → 4EST 17:44
PROVIDERS: ADMIT Internal Medicine; ATTEND Internal Medicine
DX: J96.01 Acute respiratory failure with hypoxia (principal); I42.9 Cardiomyopathy, unspecified; I50.9 Heart failure, unspecified; T38.0X5A Adverse effect of glucocorticoids and synthetic analogues, initial encounter; I11.0 Hypertensive heart disease with heart failure; J45.909 Unspecified asthma, uncomplicated; Z03.818 Encounter for observation for suspected exposure to other biological agents ruled out; Z91.013 Allergy to seafood; Z82.49 Family history of ischemic heart disease and other diseases of the circulatory system
CPT/HCPCS: 36415; 71045; 71275; 80048; 80053; 83615; 83735; 83880; 84443; 84484; 85025; 85379; 86140; 87635; 93005; 93306; 96374; 96375; 99285; G0378; J1100; J1650; Q9967; J1940; J2060